=== PATIENT | male | born 1990 | race Caucasian/White ===

== ENCOUNTER 2018-05-17 08:04 | Emergency (ER) | payer MEDICAID ==
[~2018-05-17] VITALS: Ht 167.6 cm; Wt 104.3 kg
[2018-05-17 08:04] VITALS: BP 141/83
--- NOTE | 2018-05-17 08:36 | NUR ---
patient presented to the ER due to RFA laceration. on room air, breathing evenly and unlabored. kept comfortable, will continue to monitor accordingly.
--- NOTE | 2018-05-17 08:59 | NUR ---
Laceration repaired with suture by MD. Instructed to follow up with PMD. Patient discharged to home in stable condition. Written and verbal after care instructions given. Patient verbalizes understanding of instruction.
== END 2018-05-17 09:01 | disposition home or self-care (01) ==
LOC: ER 08:06
DX: S51.811A Laceration without foreign body of right forearm, initial encounter (principal); W25.XXXA Contact with sharp glass, initial encounter; Y93.89 Activity, other specified; Y92.89 Other specified places as the place of occurrence of the external cause; Y99.8 Other external cause status
CPT/HCPCS: 12001; 99283; A6403

== ENCOUNTER 2018-05-17 17:34 | Emergency (ER) | payer MEDICAID ==
[~2018-05-17] VITALS: Ht 167.6 cm; Wt 99.8 kg
--- NOTE | 2018-05-17 18:02 | NUR ---
patient presented to the ER c/o RFA pain, on room air, breathing evenly and unlabored. Kept comfortable, will continue to monitor accordingly.
[2018-05-17 19:17] VITALS: BP 135/71
--- NOTE | 2018-05-17 19:19 | NUR ---
Patient discharged to home in stable condition. Written and verbal after care instructions given. Patient verbalizes understanding of instruction.
== END 2018-05-17 19:18 | disposition home or self-care (01) ==
LOC: ER 17:39
DX: S51.811A Laceration without foreign body of right forearm, initial encounter (principal); W25.XXXA Contact with sharp glass, initial encounter; Y93.89 Activity, other specified; Y92.89 Other specified places as the place of occurrence of the external cause; Y99.8 Other external cause status
CPT/HCPCS: 73090-TC

== ENCOUNTER 2020-11-11 11:20 | Emergency (ER) | payer MEDICAID ==
[~2020-11-11] VITALS: Ht 162.6 cm; Wt 102.1 kg
--- NOTE | 2020-11-11 11:32 | NUR ---
Patient presents self in ER for c/o abdominal pain and hematuria since this am. Patient alert and oriented x4. No respiratory distress noted. Respirations even and unlabored. Awaiting MD resendez. No abdominal distention noted.
[2020-11-11] MEDS ORDERED: MAG HYDROX/AL HYDROX/SIMETH 30 ML UDC PO ONE (12:30)
[2020-11-11] MEDS ORDERED: KETOROLAC TROMETHAMINE INJ 30 MG/ML VIAL IV ONE (12:30)
[2020-11-11] MEDS ORDERED: ONDANSETRON HCL/PF 4 MG/2 ML VIAL IVP ONE (12:30)
[2020-11-11] MEDS ORDERED: LIDOCAINE VISCOUS 2% UD 15 ML UDC MM ONE (12:30)
[2020-11-11] MEDS ORDERED: IV NS 0.9% 1,000 ML BAG IV ONE (12:30)
[2020-11-11] MEDS ORDERED: KETOROLAC TROMETHAMINE 15 MG/ML VIAL ONE (12:36)
[2020-11-11 12:54] LABS: BASOPHILS # (AUTO) 0.1 K/uL (0.0-0.2); BASOPHILS % (AUTO) 0.9 % (0.0-2.0); EOSINOPHILS % (AUTO) 1.1 % (0.0-6.0); HEMATOCRIT 50 % (39-51); HEMOGLOBIN 16.8 g/dL (13.5-17.5); LYMPHOCYTES # (AUTO) 1.9 K/uL (0.8-4.8); LYMPHOCYTES % (AUTO) 19.1 % (20.0-44.0); MEAN CORPUSCULAR HGB CONC 33 g/dl (31.0-36.0); MEAN CORPUSCULAR VOLUME 90 fL (80-96); MONOCYTES # (AUTO) 0.6 K/uL (0.1-1.30); MONOCYTES % (AUTO) 5.8 % (2.0-12.0); NEUTROPHILS # (AUTO) 7.1 K/uL (1.8-8.9); NEUTROPHILS % (AUTO) 73.1 % (43.0-81.0); PLATELET COUNT (AUTO) 337 K/uL (150-450); WHITE BLOOD COUNT (AUTO) 9.8 K/uL (4.3-11.0)
[2020-11-11 13:21] LABS: CALCIUM, SERUM 9.3 mg/dL (8.5-10.1); CREATININE 0.9 mg/dL (0.6-1.3); POTASSIUM 4.5 mmol/L (3.5-5.1)
[2020-11-11 13:27] LABS: ALBUMIN 4.7 g/dL (3.4-5.0); BILIRUBIN,DIRECT 0.1 mg/dL (0.0-0.2); BILIRUBIN,TOTAL 0.4 mg/dL (0.2-1.0)
--- NOTE | 2020-11-11 13:53 | NUR ---
Urine collected and sent to lab
[2020-11-11] MEDS ORDERED: TAMS-12 PO (14:00)
[2020-11-11] MEDS ORDERED: IBUP-1957 PO (14:00)
[2020-11-11 14:34] LABS: BILIRUBIN,URINE Negative (NEGATIVE); COLOR,URINE YELLOW (YELLOW); LEUKOCYTE ESTERASE ,URINE Negative (NEGATIVE); NITRITE, URINE Negative (NEGATIVE); PH,URINE 6.5 (5.0-8.0); PROTEIN,URINE Negative (NEGATIVE); UGLUCOSE Negative (NEGATIVE); UROBILINOGEN,URINE 0.2 EU/dL (0.2)
[2020-11-11 14:38] VITALS: BP 130/72
--- NOTE | 2020-11-11 14:38 | NUR ---
Patient discharged to home in stable condition. Written and verbal after care instructions given. Patient verbalizes understanding of instruction.
== END 2020-11-11 14:39 | disposition home or self-care (01) ==
LOC: ER 11:23
DX: N20.0 Calculus of kidney (principal); Z79.899 Other long term (current) drug therapy
CPT/HCPCS: 36415; 74176; 80048; 80076; 81001; 83690; 85025; 96361; 96374; 99284; J1885; J7030

== ENCOUNTER 2021-02-08 16:45 | Emergency (ER) | payer MEDICAID ==
[~2021-02-08] VITALS: Ht 167.6 cm; Wt 108.9 kg
[~2021-02-08 16:45] MED LIST: IBUP-1957 PO; TAMS-12 PO
[2021-02-08 17:05] VITALS: BP 151/89
[2021-02-08] MEDS ORDERED: HYDR7CRE RC (18:31)
--- NOTE | 2021-02-08 18:42 | NUR ---
Patient discharged to home in stable condition. Written and verbal after care instructions given. Patient verbalizes understanding of instruction.
== END 2021-02-08 18:43 | disposition home or self-care (01) ==
LOC: ER 16:50
DX: K64.4 Residual hemorrhoidal skin tags (principal)

== ENCOUNTER 2022-09-26 10:08 | Emergency (ER) | payer MEDICAID ==
[~2022-09-26] VITALS: Ht 167.6 cm; Wt 106.6 kg
[~2022-09-26 10:08] MED LIST changes: +HYDR7CRE RC
[2022-09-26 10:21] VITALS: BP 152/90; TEMP 98.2
[2022-09-26] MEDS ORDERED: VALA100026 PO (11:45)
[2022-09-26] MEDS ORDERED: DEXT15DR6 LEFTEYE (11:45)
[2022-09-26] MEDS ORDERED: PRED20TA PO (11:45)
[2022-09-26 12:15] VITALS: O2SAT 97
== END 2022-09-26 12:16 | disposition home or self-care (01) ==
LOC: ER 10:21
DX: G51.0 Bell's palsy (principal)

== ENCOUNTER 2024-06-03 09:42 | Emergency (ER) | payer MEDICAID, OTHER ==
[~2024-06-03] VITALS: Ht 167.6 cm; Wt 106.6 kg
[~2024-06-03 09:42] MED LIST changes: +DEXT15DR6 LEFTEYE; +PRED20TA PO; +VALA100026 PO
[2024-06-03 10:05] VITALS: BP 141/95; TEMP 98; O2SAT 97
[2024-06-03] MEDS ORDERED: IBUP-1955 PO (12:06)
== END 2024-06-03 12:10 | disposition home or self-care (01) ==
LOC: ER 09:47
DX: M25.512 Pain in left shoulder (principal); M54.2 Cervicalgia; Z79.1 Long term (current) use of non-steroidal anti-inflammatories (NSAID); Z79.52 Long term (current) use of systemic steroids; Z79.624 Long term (current) use of inhibitors of nucleotide synthesis; W18.39XA Other fall on same level, initial encounter; Y93.89 Activity, other specified; Y92.89 Other specified places as the place of occurrence of the external cause; Y99.8 Other external cause status
CPT/HCPCS: 72040-TC; 73030-TC

== ENCOUNTER 2025-02-24 11:20 | Emergency (ER) | payer MEDICAID, OTHER ==
[~2025-02-24] VITALS: Ht 165.1 cm; Wt 108.9 kg
[~2025-02-24 11:20] MED LIST changes: +IBUP-1955 PO
[2025-02-24 11:26] VITALS: TEMP 98.5
[2025-02-24] MEDS ORDERED: ONDANSETRON 4 MG TAB.RAPDIS ONE (11:36)
[2025-02-24] MEDS: ONDANSETRON 4 MG TAB.RAPDIS SL ONE (11:38)
[2025-02-24] MEDS ORDERED: LIDOCAINE VISCOUS 2% UD 15 ML UDC ONE (13:17)
[2025-02-24] MEDS: LIDOCAINE VISCOUS 2% UD 15 ML UDC MM ONE (13:30)
[2025-02-24] MEDS ORDERED: ONDA4TAB11 PO (14:32)
[2025-02-24] MEDS ORDERED: PANT40TA49 PO (14:32)
[2025-02-24 14:37] VITALS: BP 142/97; O2SAT 97
== END 2025-02-24 14:39 | disposition home or self-care (01) ==
LOC: ER 11:21
DX: R09.89 Other specified symptoms and signs involving the circulatory and respiratory systems (principal); Z79.1 Long term (current) use of non-steroidal anti-inflammatories (NSAID); Z79.52 Long term (current) use of systemic steroids; Z79.624 Long term (current) use of inhibitors of nucleotide synthesis; Z79.899 Other long term (current) drug therapy
CPT/HCPCS: 99284; 70490; 70360; Q0162